=== PATIENT | female | born 1970 | race Caucasian/White ===

== ENCOUNTER → 2021-10-14 | Outpatient (CLI) | payer BC | LOC: LAB SHORT 17:37 | DX: N76.0 Acute vaginitis (principal) | CPT/HCPCS: 87070; 87077; 87186; 87205 ==

== ENCOUNTER → 2021-11-07 | Outpatient (CLI) | payer BC | END | disposition home or self-care (01) | LOC: LAB SHORT 17:43 | DX: N89.8 Other specified noninflammatory disorders of vagina (principal) | CPT/HCPCS: 87070; 87205 ==

== ENCOUNTER → 2021-11-13 | Outpatient (CLI) | payer BC ==
[2021-11-14 13:56] LABS: Candida species (DNA Probe) Negative (NEGATIVE); G. vaginalis (DNA Probe) Negative (NEGATIVE); T. vaginalis (DNA Probe) Negative (NEGATIVE)
== END | disposition home or self-care (01) ==
LOC: LAB 17:30 → LAB SHORT 17:30
PROVIDERS: Obstetrics & Gynecology
DX: N89.8 Other specified noninflammatory disorders of vagina (principal)
CPT/HCPCS: 87480; 87510; 87660

== ENCOUNTER → 2022-01-02 | Outpatient (CLI) | payer BC | END | disposition home or self-care (01) | LOC: LAB SHORT 17:30 | DX: R51.9 Headache, unspecified (principal) | CPT/HCPCS: 85651 ==

== ENCOUNTER → 2022-08-26 | Outpatient (CLI) | payer BC | LOC: LAB 11:25 → LAB SHORT 11:25 | DX: K59.09 Other constipation (principal) | CPT/HCPCS: 83993 ==

== ENCOUNTER 2023-04-06 08:22 | Day surgery (SDC) | payer BC ==
[~2023-04-06] VITALS: Ht 165.1 cm; Wt 62.1 kg
[2023-04-06] VITALS (17 sets, daily range): BP systolic 88–127; BP diastolic 43–80
--- NOTE | 2023-04-06 09:02 | NUR ---
History, Chart, Medications and Allergies reviewed before start of procedure. Lungs clear T/O to Auscultation. Patient confirms NPO status and agrees with scheduled surgery. Pre-Op teaching done. Pt verbalizes understanding. Patient States Post-Procedure ride home has been arranged.
--- NOTE | 2023-04-06 09:56 | NUR ---
04/06/23 0956 Jerman Adam HISTORY, CHART, MEDICATIONS AND ALLERGIES REVIEWED BEFORE START OF PROCEDURE. PATIENT CONFIRMS NPO STATUS AND AGREES WITH SCHEDULED PROCEDURE. 3-LEAD EKG REVIEWED WITH PHYSICIAN PRIOR TO START OF PROCEDURE. MONITOR INTACT WITH CONTINUOUS PULSE OXIMETRY,CAPNOGRAPHY, 3-LEAD EKG, INTERMITTENT BP. SUPPLEMENTAL O2 TO BE TITRATED THROUGHOUT PROCEDURE TO MAINTAIN O2 SATURATION ABOVE 90%. PATIENT DETERMINED TO BE ASA APPROPRIATE FOR PROPOFOL SEDATION PRIOR TO START OF PROCEDURE BY
--- NOTE | 2023-04-06 10:23 | NUR ---
INTO STEP VIA GURNEY-S/P COLONOSCOPY. PT DROWSY, BUT AWAKENS TO VOICE AND IS ORIENTED X 4. PT DENIES PAIN OR NAUSEA.CLEAR LIQUIDS PROVIDED.
--- NOTE | 2023-04-06 10:50 | NUR ---
Patient up to Ambulate independently. Gait steady. Discharge instructions reviewed with patient. Patient verbalizes understanding. Copy given to patient to take home.Pt ride home had to go to the ER. Will hold pt in step/hold until ride available.
--- NOTE | 2023-04-06 12:22 | NUR ---
Pt able to get a ride home from her friend Janet. Discharged to home with dc instructions and belongings on hand.
== END 2023-04-06 12:22 | disposition home or self-care (01) ==
LOC: ORSCMMR 08:22 → ORD 09:00 → ORSCMMR 12:22
PROVIDERS: Internal Medicine Gastroenterology
PROC: 0DBE8ZX Excision of Large Intestine, Via Natural or Artificial Opening Endoscopic, Diagnostic (ICD-10-PCS; principal; 2023-04-06 09:00)
DX: R19.4 Change in bowel habit (principal); R14.0 Abdominal distension (gaseous); R10.84 Generalized abdominal pain; Z86.000 Personal history of in-situ neoplasm of breast
CPT/HCPCS: 88305; J2250; J2704; J7120